=== PATIENT | male | born 1975 | race Caucasian/White ===

== ENCOUNTER 2019-07-26 08:07 | Outpatient (CLI) | payer BC ==
[2019-08-07 08:07] LABS: HDL 40 mg/dL (>40); eGFR (Non-African) > 60
== END 2019-07-26 08:30 ==
LOC: RT 08:07
PROVIDERS: ATTEND Family Medicine
DX: Z13.220 Encounter for screening for lipoid disorders (principal)
CPT/HCPCS: 36415; 80053; 80061; 93005